=== PATIENT | female | born 1945 | race Caucasian/White ===

== ENCOUNTER 2016-11-25 11:52 | Emergency (ER) | payer MEDICARE, BC ==
[~2016-11-25] VITALS: Ht 160 cm; Wt 146.5 kg
[~2016-11-25 11:52] MED LIST: ALPR0.25 PO; ATOR10TA60 PO; CLOP75TA PO; DIPH25CA58 PO; DOCU-27 PO; FURO40TA4 PO; GLYB2.5T2 PO; GUAI600T38 PO; HYDR-2672 PO; IBUP-1007 PO; IPRA3AMP IH; LISI10TA2 PO; METF-620 PO; POTASSIUM CHLO10 MEQ PO; no home meds
[2016-11-25] MEDS ORDERED: DIPHTH,PERTUSS(ACELL),TET TOX 0.5 ML DISP.SYRIN. VAX IM ONE (12:30)
--- NOTE | 2016-11-25 13:20 | PHYS DOC ---
Past Medical History Past Medical History: Arthritis, CAD, CHF, Diabetes-Type II Additional Past Medical Histor: MORBID OBESITY Past Surgical History: Tonsillectomy, Tubal ligation, Other Additional Past Surgical Histo: Bladder sling, carpal tunnel release; cardiac stents Alcohol Use: Rarely Drug Use: None Adult General Chief Complaint Chief Complaint: LACERATION/AVULSION HPI HPI This is a pleasant 71-year-old female who presents the emergency department from [place]. She was in her room when she was reaching for her oxygen tubing and she fell off of her bed. She sustained an abrasion to the upper lip and reports right shoulder pain at this time. Her pain is moderate nonradiating worse with movement of the extremity and without alleviating factors. She denies numbness tingling or weakness of the extremity. Otherwise she denies loss of consciousness or neck pain. No other injuries reported. Review of systems is negative for chest pain shortness of breath abdominal pain nausea vomiting or any other injuries. All other review of systems is negative unless otherwise noted in history of present illness. Review of Systems Review of Systems SEE ABOVE. Current Medications Current Medications Current Medications Medications (Trade) Dose Ordered Sig/Grace Start Time Stop Time Status Last Admin Dose Admin Diphtheria/ Tetanus/Acell Pertussis (Boostrix) 0.5 ml ONCE ONCE 11/25/16 12:30 11/25/16 12:31 DC Allergies Allergies Allergies Coded Allergies Type Severity Reaction Last Updated Verified lidocaine Allergy Intermediate 05/25/15 Yes adhesive Allergy Mild rash 05/25/15 Yes Physical Exam Physical Exam Constitutional: Well developed, well nourished, no acute distress, non-toxic appearance. HENT: Normocephalic, mild abrasion of the upper lip with swelling. teeth are in place and not loose. No depressed skull fractures. Eyes are normal in appearance. No evidence of nasal trauma. Midface is stable., bilateral external ears normal, oropharynx moist, no oral exudates, nose normal. [] Eyes: PERRLA, EOMI, conjunctiva normal, no discharge. [] Neck: Normal range of motion, no tenderness, supple, no stridor. Cardiovascular:Heart rate regular rhythm, no murmur [] Lungs & Thorax: Bilateral breath sounds clear to auscultation Abdomen: Bowel sounds normal, soft, no tenderness, no masses, no pulsatile masses. [] Skin: Warm, dry, no erythema, no rash. Back: No tenderness, no CVA tenderness. [] Extremities: The patient's right upper extremity is warm and well perfused with a palpable pulse. She is able to make it a okay sign, given a thumbs up, and cross fingers, normal sensation of the hand is present. 2 second cap refill. Mild pain with passive range of motion of the shoulder without an obvious deformity. No ecchymosis lacerations or abrasions of the extremity. Nontender wrist nontender elbow. Otherwise the patient's extremities are nontender with normal range of motion. Neurologic: Alert and oriented X 3, normal motor function, normal sensory function, no focal deficits noted. Psychologic: Affect normal, judgement normal, mood normal. [] Current Patient Data Vital Signs Vital Signs Date Time Temp Pulse Resp B/P (MAP) Pulse Ox O2 Delivery O2 Flow Rate FiO2 11/25/16 12:25 97.9 49 18 119/49 (72) 100 Nasal Cannula 2.0 97.9 EKG EKG [] Radiology/Procedures Radiology/Procedures [] Course & Med Decision Making Course & Med Decision Making Pertinent Labs and Imaging studies reviewed. (See chart for details) [] 71-year-old female presenting to the emergency department after falling all reaching for her oxygen tubing today at 11:30. Vital signs showed mild stable chronic bradycardia. The patient is on chronic 2 L nasal cannula. Pertinent physical exam findings showed mild abrasion to the lip with mild pain with passive range of motion of the shoulder. X-rays obtained along with CT of the face and head which negative for acute pathology. 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 I recommended the patient follow-up with her primary care doctor over the next 2-3 days to continue following this. The patient is on hospice currently and thus this will need to be considered in the context of this mass. The patient was then discharged home in stable condition to follow up with their primary care physician over the next 2-3 days. They were to return if their symptoms worsened or if they were concerned for any reason. Face -to-face discharge instructions and return precautions were given. Patient's questions were answered to their satisfaction. Patient is comfortable plan. Dragon Disclaimer Dragon Disclaimer This electronic medical record was generated, in whole or in part, using a voice recognition dictation system. Departure Departure Impression: Primary Impression: Facial injury Additional Impression: Right shoulder pain Disposition: HOME, SELF-CARE Condition: STABLE Referrals: SHONDA GOMEZ (PCP) Patient Instructions: Fall Prevention and Home Safety, Shoulder Pain Additional Instructions: Thank you for allowing us to participate in your care today. Followup with your primary care physician in 3 days if your symptoms do not improve. If you do not have a primary care provider you can ask for a list of our primary care providers. Return to the emergency department you have any new or concerning findings. This should be evaluated by the primary care physician and any necessary consulting services for continued management within a few days after discharge. Return to emergency room if you have any new or concerning symptoms including but not limited to fever, chills, nausea, vomiting, intractable pain, any new rashes, chest pain, shortness of air, uncontrolled bleeding, difficulty breathing, and/or vision loss. Problem Qualifiers BISMARK MORSE MD November 25, 2016 13:20
--- NOTE | 2016-11-25 13:24 | RAD ---
CT of the head without contrast, 11/25/2016: History: Fall, altered mental status There is mild cerebral atrophy. There are mild patchy lucencies in the deep white matter bilaterally compatible with chronic ischemic change. The ventricles are within normal limits in size. There is no shift of the midline structures. There is no evidence of acute intracranial hemorrhage. There is a 2 cm mass in the left parasellar region extending into the prepontine cistern on the left. It is of higher density within the adjacent brain with an internal CT number of approximately 45 Hounsfield units. It cannot be clearly from the left cavernous sinus and posterior aspect of the distal left internal carotid artery. There is no definite underlying bone destruction of the petrous apex. There is a small amount of fluid/debris in the posterior aspect of the sphenoid sinus. There is a small amount of fluid in the left mastoid sinus. There is mild mucosal thickening posteriorly in the left ethmoid sinus. The bone windows show no evidence of a fracture. IMPRESSION: 1. Mild bilateral deep white matter lucencies compatible with chronic ischemic change. 2. Left parasellar mass as described above. Diagnostic considerations include a neoplasm such as a meningioma or a metastasis, or less likely an aneurysm. MR scanning is suggested for further evaluation. 3. Small amount of fluid in the sphenoid and left mastoid sinuses, probably on an inflammatory basis. CT of the cervical spine without contrast, 11/25/2016: Noncontrast scans were obtained with multiplanar reconstructions produced. The images are partially compromised by patient motion artifact. There is disc space narrowing with moderate marginal spurring at multiple levels in the mid and lower cervical spine. There is a large midline posterior spur at C4-5. There are moderate degenerative changes involving scattered facet joints bilaterally. The combination of findings is causing mild central spinal stenosis at several levels. No acute fracture or dislocation is identified. IMPRESSION: 1. Moderate multilevel degenerative change. 2. No acute bony abnormality is detected. PQRS Compliance Statement: One or more of the following individualized dose reduction techniques were utilized for this examination: 1. Automated exposure control 2. Adjustment of the mA and/or kV according to patient size 3. Use of iterative reconstruction technique
--- NOTE | 2016-11-25 13:27 | RAD ---
CT of the facial bones without contrast, 11/25/2016: History: Fall, head trauma Noncontrast scans were obtained with multiplanar reconstructions produced. No acute fracture is identified. There is a small amount of fluid/debris in the sphenoid sinus. There is mild mucosal thickening posteriorly in the left ethmoid sinus. The orbital contents are unremarkable. Moderate dental disease is noted. IMPRESSION: No acute bony abnormality is detected. PQRS Compliance Statement: One or more of the following individualized dose reduction techniques were utilized for this examination: 1. Automated exposure control 2. Adjustment of the mA and/or kV according to patient size 3. Use of iterative reconstruction technique
--- NOTE | 2016-11-25 13:37 | RAD ---
Indication pain associated with a fall. Internally and externally rotated views of the right shoulder as well as a Y view were obtained. There are some mild degenerative changes at the AC joint. Mild degenerative change is additionally noted at the glenohumeral joint. Acute bony finding is not seen IMPRESSION: Mild degenerative change. No acute bony finding is seen
[2016-11-25 15:45] VITALS: BP 123/65
== END 2016-11-25 16:25 | disposition home or self-care (01) ==
LOC: ER 11:52
DX: S09.8XXA Other specified injuries of head, initial encounter (principal); M25.511 Pain in right shoulder; I25.10 Atherosclerotic heart disease of native coronary artery without angina pectoris; M19.90 Unspecified osteoarthritis, unspecified site; I50.9 Heart failure, unspecified; E11.9 Type 2 diabetes mellitus without complications; E66.01 Morbid (severe) obesity due to excess calories; Z68.43 Body mass index [BMI] 50.0-59.9, adult; Z88.4 Allergy status to anesthetic agent; Z88.8 Allergy status to other drugs, medicaments and biological substances; W06.XXXA Fall from bed, initial encounter; Y93.89 Activity, other specified; Y99.8 Other external cause status; Y92.89 Other specified places as the place of occurrence of the external cause
CPT/HCPCS: 70450; 70486; 72125; 73030; 90471; 90715; 99284-25